=== PATIENT | female | born 1945 | race Caucasian/White ===

== ENCOUNTER → 2024-02-24 10:25 | Outpatient (REF) | payer MEDICARE, BC, SELFPAY ==
[2024-02-24 10:53] LABS: % Basophils 0.9 % (0-2); % Eosinophils 3.2 % (0-6); % Immature Granulocytes 0.2 % (0-0.5); % Lymphocytes 32.9 % (20.5-51.1); % Monocytes 7.6 % (1.7-9.3); % Neutrophils 55.2 % (42.2-75.2); Absolute Basophils 0.1 10^3/uL (0-0.2); Absolute Eosinophils 0.3 10^3/uL (0-0.7); Absolute Lymphocytes 2.6 10^3/uL (1.2-3.4); Absolute Monocytes 0.6 10^3/uL (0.1-0.6); Absolute Neutrophils 4.4 10^3/uL (1.4-6.5); Hematocrit 33.3 % (37.0-47.0); Hemoglobin 11.2 g/dL (12.0-16.0); Mean Corp Hgb Conc. 33.6 g/dL (33.0-37.0); Mean Corpuscular Hgb 30.5 pg (27.0-31.0); Mean Corpuscular Volume 90.7 fL (81.0-99.0); Mean Platelet Volume 11.7 fL (7.4-10.4); Nucleated Red Blood Cells % 0 %; Platelet Count 391 10^3/uL (130-400); Red Blood Cell Count 3.67 10^6/uL (4.20-5.40); Red Cell Dist. Width 12.9 % (11.5-14.5)
[2024-02-24 11:49] LABS: Iron 95 ug/dl (37-170)
== END ==
LOC: OLABN 10:25
PROVIDERS: ATTENDING PHYSICIAN Student in an Organized Health Care Education/Training Program
DX: D50.9 Iron deficiency anemia, unspecified (principal)
CPT/HCPCS: 36415; 83540; 85025

== ENCOUNTER 2024-05-04 16:23 | Inpatient (IN) | payer MEDICARE, BC, SELFPAY ==
[2024-05-04] VITALS (7 sets, daily range): BP systolic 104–146; BP diastolic 64–101; BMI 26.9; BMI 22.0
--- NOTE | 2024-05-04 10:26 | ED.GENMED ---
History of Present Illness
<Ciara Perez PA-C - Last Filed: 05/04/24 16:15>
General
Chief Complaint: Breathing Problem
Source: patient
Exam Limitations: none
Time Seen by Provider: 05/04/24 10:23
Nursing documentation reviewed up to this point in time: agreed with
History of Present Illness
History of Present Illness:
This is a 79-year-old female with a past medical history of end-stage Alzheimer's dementia, hypertension, questionable heart murmur presenting to the emergency department today with concerns of low pulse ox and coughing. Patient is nonverbal at
baseline. present in room who reports that patient started having a lot of coughing and shortness of breath yesterday. Staff at [facility] report that patient has swallowing difficulties at baseline and is on pur�ed foods as her diet
and has been on this diet for many years. They state that she started coughing well yesterday and noticed that her pulse ox was 88% on room air. States she started coughing up a lot of white copious phlegm. They expressed concerns regarding
aspiration pneumonia. denies any history of heart failure, coronary artery disease, asthma, COPD. Patient does not use any oxygen at baseline
Past History
<Ciara Perez PA-C - Last Filed: 05/04/24 16:15>
Past History
ED Past Medical History: GERD and HTN
ED Past Surgical History: Orthopedic
Social History
Tobacco: Non-smoker
Alcohol: None
Drug: None
Personal:
Living: group home
Review of Systems
<Ciara Perez PA-C - Last Filed: 05/04/24 16:15>
Review of Systems
All Other Systems: ROS reviewed and negative except as documented in HPI and ROS
Phy Exam
<Ciara Perez PA-C - Last Filed: 05/04/24 16:15>
Physical Exam
Physical Exam:
General: Patient appears chronically ill, dosing in and out of sleep which reports is baseline
Skin: Warm and dry, no rashes or lesions
Head: Normocephalic, atraumatic
Eyes: Sclera non-icteric. EOMs intact. PERRLA.
Cardiac: Regular rate and rhythm, systolic murmur appreciated
Peripheral Vascular: No lower extremity swelling or edema, 2+ dorsalis pedis pulses bilaterally
Pulm: Increased respiratory effort, scattered wheezes heard in the lung bases bilaterally
Abdomen: Patient groans when pressing on abdomen; no palpable masses
Neuro: Patient moves extremities spontaneously, moves eyes spontaneously, withdrawals to physical touch
Psychiatric: Non-verbal at baseline
Scores
<Ciara Perez PA-C - Last Filed: 05/04/24 16:15>
Heart Failure Risk
Heart Failure Risk Score: Not Applicable
Course
<Ciara Perez PA-C - Last Filed: 05/04/24 16:15>
Orders/Labs/Results
Orders:
Orders
05/04/24 10:09
Electrocardiogram (*1) Urgent
Reason for Study: Shortness of Breath
EKG- Treatment ONCE
05/04/24 10:50
CR Chest Single View Urgent
Reason For Exam: shortness of breath
05/04/24 10:58
Basic Metabolic Panel Urgent
Complete Blood Count/With Diff Urgent
05/04/24 12:59
CT Chest Pe Study Urgent
Comment:
Reason For Exam: hypoxia
05/04/24 Dinner
IDDSI 4 - Pureed
Liquid Modification: Mildly Thick ([place])
05/04/24 15:49
Admit/Transfer Patient As Directed
Co-Sign Provider:
Level of Care: Inpatient admission
Assign to:: Medical/Surgical
Physician / Group: scout lowry
Diagnosis: cough increased secretions concern aspiration pna
Reason for Hospitalization: cough increased secretions concern aspiration pna
Expected length of stay greater than two midnights?: Yes
ELOS- Estimated Length of Stay in days: 3
I certify the patient meets the requirements for IP care: Yes
Code Status As Directed
Resuscitation Status: Do not resuscitate
Reached after discussion with pt or family/Healthcare POA: Yes
Based on pt advanced directive or healthcare POA form: Yes
Decision communicated with: per [facility] record
DNR Bracelet Application ONCE
05/04/24 16:02
Piperacillin/Tazo 3.375 Gram [Zosyn] 3.375 gram in 50 ml IV NOW
05/04/24 16:[address] Non Medication Order As Directed
Physician Order: may have pureed diet nectar thick liquids ,needs to be fed
05/04/24 16:09
HydrALAZINE [Apresoline] 5 mg IV Q6HPRN PRN
05/05/24 08:00
Pantoprazole [Protonix IV] 40 mg IV DAILY
Abnormal Lab Results
05/04/24
10:58
RBC 3.83 L 10^6/uL
(4.20-5.40)
Hgb 11.6 L g/dL
(12.0-16.0)
Hct 36.0 L %
(37.0-47.0)
MCHC 32.2 L g/dL
(33.0-37.0)
Absolute Monos (auto) 0.8 H 10^3/uL
(0.1-0.6)
Lymphocytes % 17.8 L %
(20.5-51.1)
BUN 23 H mg/dl
(7-17)
05/04/24 10:58
05/04/24 10:58
Vital Signs
Initial and Last Documented VS:
Initial Vital Signs
Temp Pulse Resp BP Pulse Ox
98.2 F 95 16 146/88 98
05/04/24 10:16 05/04/24 10:16 05/04/24 10:16 05/04/24 10:16 05/04/24 10:16
Last Documented Vital Signs
Temp Pulse Resp BP Pulse Ox
98.2 F 84 16 104/64 95
05/04/24 10:16 05/04/24 14:19 05/04/24 14:19 05/04/24 14:19 05/04/24 14:19
<Drew Coronado, DO - Last Filed: 05/04/24 14:02>
Orders/Labs/Results
Orders:
Orders
05/04/24 10:09
Electrocardiogram (*1) Urgent
Reason for Study: Shortness of Breath
EKG- Treatment ONCE
05/04/24 10:50
CR Chest Single View Urgent
Reason For Exam: shortness of breath
05/04/24 10:58
Basic Metabolic Panel Urgent
Complete Blood Count/With Diff Urgent
05/04/24 12:59
CT Chest Pe Study Urgent
Comment:
Reason For Exam: hypoxia
05/04/24 Dinner
IDDSI 4 - Pureed
Liquid Modification: Mildly Thick ([place])
05/04/24 15:49
Admit/Transfer Patient As Directed
Co-Sign Provider:
Level of Care: Inpatient admission
Assign to:: Medical/Surgical
Physician / Group: scout lowry
Diagnosis: cough increased secretions concern aspiration pna
Reason for Hospitalization: cough increased secretions concern aspiration pna
Expected length of stay greater than two midnights?: Yes
ELOS- Estimated Length of Stay in days: 3
I certify the patient meets the requirements for IP care: Yes
Code Status As Directed
Resuscitation Status: Do not resuscitate
Reached after discussion with pt or family/Healthcare POA: Yes
Based on pt advanced directive or healthcare POA form: Yes
Decision communicated with: per [facility] record
DNR Bracelet Application ONCE
05/04/24 16:02
Piperacillin/Tazo 3.375 Gram [Zosyn] 3.375 gram in 50 ml IV NOW
05/04/24 16:[address] Non Medication Order As Directed
Physician Order: may have pureed diet nectar thick liquids ,needs to be fed
05/04/24 16:09
HydrALAZINE [Apresoline] 5 mg IV Q6HPRN PRN
05/05/24 08:00
Pantoprazole [Protonix IV] 40 mg IV DAILY
Abnormal Lab Results
05/04/24
10:58
RBC 3.83 L 10^6/uL
(4.20-5.40)
Hgb 11.6 L g/dL
(12.0-16.0)
Hct 36.0 L %
(37.0-47.0)
MCHC 32.2 L g/dL
(33.0-37.0)
Absolute Monos (auto) 0.8 H 10^3/uL
(0.1-0.6)
Lymphocytes % 17.8 L %
(20.5-51.1)
BUN 23 H mg/dl
(7-17)
05/04/24 10:58
05/04/24 10:58
Vital Signs
Initial and Last Documented VS:
Initial Vital Signs
Temp Pulse Resp BP Pulse Ox
98.2 F 95 16 146/88 98
05/04/24 10:16 05/04/24 10:16 05/04/24 10:16 05/04/24 10:16 05/04/24 10:16
Last Documented Vital Signs
Temp Pulse Resp BP Pulse Ox
98.2 F 84 16 104/64 95
05/04/24 10:16 05/04/24 14:19 05/04/24 14:19 05/04/24 14:19 05/04/24 14:19
<Ciara Perez PA-C - Last Filed: 05/04/24 16:15>
MDM/Problems Addressed
Differential Diagnosis Includes:
ddx include aspiration pneumonia, pulmonary embolism, CHF, bronchitis, foreign body
MDM/Problems Addressed:
cough, low pulse ox, purulent sputum:
This is a 79-year-old female with a past medical history of end-stage Alzheimer's dementia, hypertension, questionable heart murmur presenting to the emergency department today with concerns of low pulse ox and coughing. Patient is nonverbal at
baseline. Patient 88% on room air, 95% on 2 L. Has purulent sputum production. On exam, she is scattered wheezes heard throughout with coughing and snoring. CT negative for pulmonary embolism, chest x-ray negative for any active free pulmonary
disease. Considering patient at high risk for aspiration pneumonia, will observe overnight.
<Ciara Perez PA-C - Last Filed: 05/04/24 16:15>
*Pulse Oximetry
Patient hypoxic: yes
*Critical Care Note
Total Time (30-74mins, 75-104mins- exclusive of procedures): Not Applicable
Data Reviewed
Review of Other/Old Records Reveals: Discharge Summary (reviewed most recent discharge summary )
Source: patient and records
<Ciara Perez PA-C - Last Filed: 05/04/24 16:15>
Patient Management
Discussion with other providers: Hospitalist
Escalation/DeEscalation of care consider admission/obs:
admission indicated
ED Attending Note
<Ciara Perez PA-C - Last Filed: 05/04/24 16:15>
-
Portions of this chart may have been created with voice recognition software.� Occasional wrong word or��sound alike� substitutions may have occurred due to the inherent limitations of voice recognition software.
<Drew Coronado, DO - Last Filed: 05/04/24 14:02>
ED Attending Note
Patient seen and examined by attending physician: Yes
I performed a history and physical exam of patient and discussed management with resident, I reviewed resident's note and agree with documented findings and plan of care.: Yes
ED Attending Note:
I have reviewed and agree with history and treatment plan by Ciara Perez. My exam revealed 79-year-old female chronically ill appearance, her baseline. Wheezing, concern for aspiration. CT chest pending. Will treat with zosyn, admit.
Discharge Plan
Departure
Patient Disposition: Admit
Date of Disposition: 05/04/24
Time of Disposition: 15:57
Admit to: Med/Surg
Presentation/result/management discussed w/ accepting MD/DO: Hospitalist
Condition: Fair
Discharge Problem:
Hypoxemia, At high risk for aspiration
Prescriptions:
No Action
rivastigmine tartrate 4.5 MG capsule
4.5 mg PO DAILY
amlodipine [Norvasc] 2.5 mg Tablet
2.5 mg PO DAILY
acetaminophen 325 mg Tablet
650 mg PO Q4HPRN PRN (Reason: mild pain)
aspirin 81 mg Tablet,Delayed Release (Dr/Ec)
81 mg PO DAILY
magnesium hydroxide [Milk of Magnesia] 400 mg/5 mL Suspension
30 ml PO HSPRN PRN (Reason: constipation)
bisacodyl 10 mg Suppository
10 mg [place] [id number] PRN (Reason: day 3 no bm and mom ineffective)
benzocaine 20 % Gel
1 applic MUCOUS MEMBRANE TID
Rx Instructions:
apply to gums
sertraline 50 mg Tablet
50 mg PO DAILY
naloxone 4 mg/actuation [place],Non-Aerosol
4 mg INTRANASAL Q3MPRN PRN (Reason: opiod overdose)
sennosides [senna] 8.6 mg tablet
17.2 mg PO QPM
ferrous sulfate 325 mg (65 mg iron) tablet
325 mg PO Q48H
Referrals:
Oliver Desai DO [Family Provider] -
Interventions
Interventions:
*Risk Screen - Suicide Last Done: 05/04/24 10:29
*General Assessment Last Done: 05/04/24 10:16
*Neglect/Abuse Screening Last Done: 05/04/24 10:16
*ED COVID-19 Vaccine History Last Done: 05/04/24 10:29
ED- Cardiac Assessment Last Done: 05/04/24 10:30
ED- Pulmonary Assessment Last Done: 05/04/24 10:30
Discharge Date and Time
Print Language: OCCITAN
[2024-05-04 11:15] LABS: % Basophils 0.6 % (0-2); % Immature Granulocytes 0.2 % (0-0.5); % Lymphocytes 17.8 % (20.5-51.1); % Monocytes 9.1 % (1.7-9.3); % Neutrophils 71.3 % (42.2-75.2); Absolute Basophils 0.1 10^3/uL (0-0.2); Absolute Eosinophils 0.1 10^3/uL (0-0.7); Absolute Lymphocytes 1.5 10^3/uL (1.2-3.4); Absolute Monocytes 0.8 10^3/uL (0.1-0.6); Absolute Neutrophils 5.8 10^3/uL (1.4-6.5); Hemoglobin 11.6 g/dL (12.0-16.0); Mean Corp Hgb Conc. 32.2 g/dL (33.0-37.0); Mean Corpuscular Hgb 30.3 pg (27.0-31.0); Mean Platelet Volume 9.5 fL (7.4-10.4); Nucleated Red Blood Cells % 0 %; Platelet Count 327 10^3/uL (130-400); Red Blood Cell Count 3.83 10^6/uL (4.20-5.40); Red Cell Dist. Width 12.8 % (11.5-14.5); White Blood Cell Count 8.2 10^3/uL (4.8-10.8)
[2024-05-04 11:32] LABS: Blood Urea Nitrogen 23 mg/dl (7-17); Calcium 9.6 mg/dl (8.4-10.2); Carbon Dioxide 24 mmol/L (22-30); Chloride 105 mmol/L (98-107); Estimated Creatinine Clearance 43 ml/min; Glucose 92 mg/dl (70-99); Sodium 139 mmol/L (135-145); eGFR > 60.00
--- NOTE | 2024-05-04 15:15 | HPS.HSE ---
Addendum entered and electronically signed by Presley Brand MD 05/04/24 16:50:
I saw and examined the patient.
The AGRICULTURE TEACHER or PA's note was reviewed and I agree with the note.
Comment:
79 years old female with advanced dementia and aphasia was brought into the emergency room for concerns regarding coughing after taking clear liquids today. In the emergency room, she had suctioning of oral secretions. Per ER staff, patient had
wheezes on examination. By time I am seeing the patient, she is on room air with no wheezes. She was chewing on her blanket. We gave her applesauce and she tolerated it well without hypoxia or coughing. No fever or leukocytosis.
Physical Exam
General: Other (Awake nonverbal unable to follow commands is chewing on her fingers , able to move arms able to swallow own secretions)
HEENT: NormoCephalic, Anicteric, Moist mucous membranes, PERRLA, [place] Conjunctivae and No Ptosis. Poor dentition
Respiratory: Clear; No Wheezes, Rales or Rhonchi
Cardiac: S1/S2 and positive murmur
GI: Soft, Non Tender, Non Distended and Normal Bowel Sounds
Rectal: No rectal bleed
Genito-urinary: No Hurd
Musculoskeletal: Chronic deformity
Skin: Warm and Dry; No Rash
Neuro: She is awake, disoriented, apparent dementia. Did not follow commands.
Psych: Calm
Assessment and plan
# Report of aspiration. Currently patient has no signs of hypoxia or respiratory distress. Repeat chest x-ray in a.m. as admission chest x-ray did not show acute findings
Can watch the patient overnight and if she maintains good oxygenation with no fever, we can stop antibiotic.
# Advanced Alzheimer dementia, end-stage
Will continue comfort feedings with a pur�ed diet and thickened liquids. Trial of swallowing in the ER did not show signs of distress or coughing
# CODE STATUS, DNR/DNI
Total time spent to see the patient, examine the patient on the floor, review data and lab results, discuss treatment plan with patient, ER doctor, nursing staff around 75 minutes
Original Note:
Family Physician
-
Family Physician: Oliver Desai, DO
Chief Complaint
-
Cough, increased oral secretions, hypoxia
History of Present Illness
79-year-old female from [facility] came to ER this a.m. for reported hypoxia 88%, cough with increased oral secretions. According to ER nurse she was coughing up clear liquid approximately 100 cc she suctioned out of the patient's mouth.
Patient is chronically bedbound, nonverbal due to advanced Alzheimer's. She currently is awake alert chewing on a blanket trying to mumble some words. She is maintaining her oxygen saturation at 95% on room air. She has no audible cough, no rash,
diaphoresis, vomiting, diarrhea.
Past medical history end-stage Alzheimer's with chronic nonverbal state, chronic dysphagia on pur�ed diet, HTN, GERD, UTIs, anxiety, iron deficiency, chronic right leg shortening
Medical History
Past Medical History
Past Medical History: Reports Other
Additional Past Medical History:
End-stage Alzheimer's with chronic nonverbal state
chronic dysphagia on pur�ed diet
HTN
GERD
UTIs
Anxiety
iron deficiency
Past Surgical History: Reports Other
Additional Past Surgical History:
Left hip replacement 1999
EARLINE
Right hip surgery, right knee surgery
Social History
Unable to obtain full social history at this time due to: Patient Non-verbal
Alcohol: None
Drug: None
Personal:
Living: Group Home ([facility])
Employment: Retired
Family History
Family History: Unable to Obtain
Allergies / Home Medications
Allergies reflects when Allergies were last updated in [employer].
Home Medications with original date entered in [employer]
Allergy/Medication List:
Allergies
Allergy/AdvReac Type Severity Reaction Status Date / Time
No Known Allergies Allergy Verified 05/04/24 10:03
Home Medications
rivastigmine tartrate 4.5 mg capsule 4.5 mg PO DAILY DEMENTIA 06/22/20
amlodipine 2.5 mg tablet (Norvasc) 2.5 mg PO DAILY Blood pressure 01/16/23
acetaminophen 325 mg tablet 650 mg PO Q4HPRN PRN mild pain 05/04/24
aspirin 81 mg tablet,delayed release 81 mg PO DAILY 05/04/24
benzocaine 20 % mucosal gel 1 applic mucous membrane TID 05/04/24
bisacodyl 10 mg rectal suppository 10 mg SD [id number] PRN day 3 no bm and mom ineffective 05/04/24
ferrous sulfate 325 mg (65 mg iron) tablet 325 mg PO Q48H 05/04/24
magnesium hydroxide 400 mg/5 mL oral suspension (Milk of Magnesia) 30 ml PO HSPRN PRN constipation 05/04/24
naloxone 4 mg/actuation nasal spray 4 mg intranasal Q3MPRN PRN opiod overdose 05/04/24
sennosides 8.6 mg tablet (senna) 17.2 mg PO QPM 05/04/24
sertraline 50 mg tablet 50 mg PO DAILY 05/04/24
Review of Systems
-
History Source: Group Home and Other (ER nurse)
A 12 point ROS was completed and negative except as noted: Yes
Constitutional: Denies Fever or Fatigue
EENT: Reports Other (Increased oral secretions); Denies Runny Nose
Respiratory: Reports Cough
Cardiac: Denies Diaphoresis or Syncope
Abdomen/GI: Denies Nausea, Vomiting or Diarrhea
Musculoskeletal: Denies Joint Swelling or Edema
Skin: Denies Itching or Rash
Endocrine: Reports No Symptoms
Hematologic/Lymphatic: Reports No Symptoms
Psych: Reports Calm
Physical Exam
Vital Signs
Vital Signs
Temp Pulse Resp BP Pulse Ox
98.2 F 84 16 104/64 95
05/04/24 10:16 05/04/24 14:19 05/04/24 14:19 05/04/24 14:19 05/04/24 14:19
Physical Exam
General: Other (Awake nonverbal unable to follow commands is chewing on blanket able to move arms able to swallow own secretions)
HEENT: NormoCephalic, Anicteric, Moist mucous membranes, PERRLA, [place] Conjunctivae and No Ptosis
Respiratory: Clear; No Wheezes, Rales or Rhonchi
Cardiac: S1/S2 and Regular Rhythm; No Murmur, Rub, Gallop or Peripheral Edema
Breast: Deferred by me
GI: Soft, Non Tender, Non Distended and Normal Bowel Sounds
Rectal: Deferred by Provider
Genito-urinary: Deferred by me
Musculoskeletal: No Clubbing, No Cyanosis, No Edema and Other (Chronic right leg shortening)
Skin: Warm and Dry; No Rash
Neuro: Other (Awake nonverbal unable to follow commands is chewing on blanket able to move arms able to swallow own secretions, chronic contractures bilateral hands, bilateral arms that any cube); No Facial Droop or Tremors
Psych: Calm
Laboratory Results
-
05/04/24 10:58
05/04/24 10:58
Laboratory Results
Total Bilirubin Cancelled 05/04/24 10:58
AST Cancelled 05/04/24 10:58
ALT Cancelled 05/04/24 10:58
Alkaline Phosphatase Cancelled 05/04/24 10:58
Data Reviewed
-
Diagnostic Radiology: Report Reviewed by me
CT Scan: Report Reviewed by me
Lab Data: Labs Reviewed by me
Impression/Plan
-
Impression/plan:
Admit to MedSurg
#Cough, increased oral secretions concern for aspiration PNA
#Hx dysphagia on pur�ed diet
95% RA, 98.2 F, HR 84
-Patient currently without cough is tolerating oral secretions
-Will resume pur�ed diet monitor for fever/coughing
-Meds crushed and mixed with applesauce
-Consult PT/OT/case management
CT chest PE study: No PE
CXR: No active cardiopulmonary disease
#Hx end-stage Alzheimer's chronic Nonverbal, chronic dysphagia/contracture bilateral hands and arms at any cube
#Hx anxiety with delusions
-Rivastigmine 4.5 mg daily crush give with apple sauce
-Zoloft 50 mg daily
#HTN
BP 104/64
-Hold Norvasc 2.5 mg daily
prn hydralzine
#Chronic right leg shortening history of hip fracture repair, right knee surgery
#Chronic bedbound status
#GERD
-IV PPI
#UTIs hx
#Iron deficiency hx
Hgb 11.6, MCV 94
DVT prophylaxis
Subcu Lovenox
DNR per [facility] records
[2024-05-04] MEDS: ZOSYN 50 IV (17:52)
[2024-05-04] MEDS: LOVENOX 40 MG SC (17:53)
[2024-05-05 05:40] LABS: % Basophils 0.4 % (0-2); % Eosinophils 2.3 % (0-6); % Immature Granulocytes 0.2 % (0-0.5); % Lymphocytes 21.1 % (20.5-51.1); % Monocytes 9.6 % (1.7-9.3); % Neutrophils 66.4 % (42.2-75.2); Absolute Eosinophils 0.2 10^3/uL (0-0.7); Absolute Lymphocytes 1.8 10^3/uL (1.2-3.4); Absolute Monocytes 0.8 10^3/uL (0.1-0.6); Absolute Neutrophils 5.5 10^3/uL (1.4-6.5); Hematocrit 33.2 % (37.0-47.0); Hemoglobin 11.1 g/dL (12.0-16.0); Mean Corp Hgb Conc. 33.4 g/dL (33.0-37.0); Mean Corpuscular Hgb 30.1 pg (27.0-31.0); Nucleated Red Blood Cells % 0 %; Platelet Count 340 10^3/uL (130-400); Red Blood Cell Count 3.69 10^6/uL (4.20-5.40); Red Cell Dist. Width 12.8 % (11.5-14.5); White Blood Cell Count 8.3 10^3/uL (4.8-10.8)
[2024-05-05 05:42] VITALS: BMI 21.5
[2024-05-05 06:35] LABS: Blood Urea Nitrogen 21 mg/dl (7-17); Calcium 9.9 mg/dl (8.4-10.2); Carbon Dioxide 25 mmol/L (22-30); Chloride 105 mmol/L (98-107); Estimated Creatinine Clearance 48 ml/min; Glucose 81 mg/dl (70-99); Potassium 4.7 mmol/L (3.5-5.1); Sodium 140 mmol/L (135-145); eGFR > 60.00
[2024-05-05 07:35] VITALS: BP 110/78
[2024-05-05] MEDS: EXELON 4.5 MG PO (08:24)
[2024-05-05] MEDS: ZOLOFT 50 MG PO (08:24)
[2024-05-05] MEDS: NSS (PRESERVATIVE FREE) 10 ML IV (08:24)
[2024-05-05] MEDS: PROTONIX IV 40 MG IV (08:33)
--- NOTE | 2024-05-05 08:43 | PTOTSP ---
Dysphagia Evaluation
Patient with signs of oral/pharyngeal dysphagia due to advanced dementia but without clinical signs concerning for aspiration complications (i.e., chest x-ray without PNA, pt on room air, afebrile, WBC WNL) at this time.
Consider the following pending GOC:
1. If goals of care are for COMFORT feeding understanding aspiration risks, recommend pureed solids and thin liquids.
2. If goals of care are 'safest' diet, consider video swallow study to rule out silent aspiration of thickened liquids as this cannot be done at the bedside and thickened liquids are at a greater risk for pulmonary complications than thin liquids.
Recommend:
1. Diet above pending GOC
2. Oral care 3x daily
3. Strategies: upright to 90 degrees, full feeding assistance, small single sips/bites, slow rate, ensure mouth is clear before next sip/bite, remain upright after meals for 30 minutes as reflux precaution given hx GERD
4. Will f/u for further assessment pending GOC.
--- NOTE | 2024-05-05 09:35 | W.DCSUMMARY ---
Discharge Summary
Discharge Data
Date of Admission: 05/04/24
Date of Discharge: 05/05/24
-
Pending Results: No
Hospital Course
79 years old female was brought into the emergency room after having cough, hypoxia while drinking liquids at the custodial. Upon arrival to the ER, staff suctioned clear liquid out of the patient's mouth. Patient did not have hypoxia in the
hospital. No fever or leukocytosis. Chest radiography did not show infiltration. Patient was given empiric antibiotic in the ER and admitted for observation overnight. Patient did not develop fever or hypoxia overnight. She did not cough. She
tolerated modified diet. She remained hemodynamically stable and was discharged back to custodial in a stable condition. Patient had underlying advanced Alzheimer's dementia/end-stage and chronic nonverbal state.
Physical Exam
General: Not in respiratory distress, awake nonverbal, able to move arms, able to swallow own secretions.
HEENT: Normocephalic, Anicteric, Moist mucous membranes. Poor dentition
Respiratory: Clear; No Wheezes, Rales or Rhonchi
Cardiac: S1/S2 and positive murmur
GI: Soft, Non Tender, Non Distended and Normal Bowel Sounds
Rectal: No rectal bleed
Genito-urinary: No Hurd
Musculoskeletal: Chronic deformity and contractures of extremity mostly lower
Skin: Warm and Dry; No Rash
Neuro: She is awake, disoriented, apparent dementia. Nonverbal. Did not follow commands.
Psych: Calm, apparent dementia. No agitation.
Total discharge time spent to see the patient, examine the patient on the floor, review data and lab results, discuss discharge plan with rehabilitation caseworker, nursing staff around 65 minutes
Discharge Plan
-
Patient Disposition: Longterm/SNF
Discharge Diagnosis/Procedures: Aspiration event
Patient was transferred for an aspiration/choking event. No hypoxia in the hospital. Chest x-ray did not show infiltration. No leukocytosis. No fevers.
Recommend comfort directed care
Diet: As tolerated
Additional Diets: continue modified diet with aspiration precaution
Referrals:
Oliver Desai DO [Family Provider] -
Prescriptions:
Continued
rivastigmine tartrate 4.5 MG capsule
4.5 mg PO DAILY
amlodipine [Norvasc] 2.5 mg Tablet
2.5 mg PO DAILY
acetaminophen 325 mg Tablet
650 mg PO Q4HPRN PRN (Reason: mild pain)
aspirin 81 mg Tablet,Delayed Release (Dr/Ec)
81 mg PO DAILY
magnesium hydroxide [Milk of Magnesia] 400 mg/5 mL Suspension
30 ml PO HSPRN PRN (Reason: constipation)
bisacodyl 10 mg Suppository
10 mg [place] [id number] PRN (Reason: day 3 no bm and mom ineffective)
benzocaine 20 % Gel
1 applic MUCOUS MEMBRANE TID
Rx Instructions:
apply to gums
sertraline 50 mg Tablet
50 mg PO DAILY
naloxone 4 mg/actuation [place],Non-Aerosol
4 mg INTRANASAL Q3MPRN PRN (Reason: opiod overdose)
sennosides [senna] 8.6 mg tablet
17.2 mg PO QPM
ferrous sulfate 325 mg (65 mg iron) tablet
325 mg PO Q48H
Discharge Orders:
Discharge Patient (As Directed); Ordered 05/05/24
Ordered By: Presley Brand
Discharge Date and Time
Discharge Date/Time: 05/05/24 17:51
Print Language: GREENLANDIC
[2024-05-05] MEDS: TYLENOL 500 MG PO (13:23)
--- NOTE | 2024-05-05 15:06 | W.PN.UPDATE ---
Update Note
Progress Note Update
called and updated the about dc planning
[2024-05-05 15:44] VITALS: BP 111/79
--- NOTE | 2024-05-05 16:09 | CM ---
Reviewed chart, placed a call to [facility] Unit [facility] and spoke with Brittany her RN who stated that at baseline patient is fully dependent. She is a aliyah and non ambulatory. She is on a pureed diet. She gets fed and is dependent with all ADLs.
Patient ready for discharge.
Brittany stated that # for report is [phone] and fax# [phone]
Left message for Pardeep in admissions to make aware of patient's return.
Provided unit secy with medical necessity, and transfer sheet.
Plan: Case management will continue to follow and assist with discharge planning. Back to [facility].
[2024-05-05] MEDS: LOVENOX 40 MG SC (17:15)
== END 2024-05-05 17:51 | DRG 206 ==
LOC: 3 WEST ACU 16:23
PROVIDERS: Clinical Nurse Specialist Family Health; Physician Assistant; ADMITTING PHYSICIAN Internal Medicine; EMERGENCY PHYSICIAN Emergency Medicine; FAMILY PHYSICIAN Student in an Organized Health Care Education/Training Program
DX: R09.02 Hypoxemia (principal); F02.84 Dementia in other diseases classified elsewhere, unspecified severity, with anxiety; R47.01 Aphasia; G30.9 Alzheimer's disease, unspecified; I10 Essential (primary) hypertension; E61.1 Iron deficiency; K21.9 Gastro-esophageal reflux disease without esophagitis; R13.10 Dysphagia, unspecified; Z66 Do not resuscitate; Z74.01 Bed confinement status; Z79.82 Long term (current) use of aspirin; Z79.899 Other long term (current) drug therapy; Z91.89 Other specified personal risk factors, not elsewhere classified
CPT/HCPCS: 71045; 71275; 80048; 85025; 87070; 92610; 93005; 96374; 99285; Q9967

== ENCOUNTER → 2024-08-24 09:53 | Outpatient (REF) | payer MEDICARE, BC, SELFPAY ==
[2024-08-24 10:43] LABS: Iron 53 ug/dl (37-170)
== END ==
LOC: OLABN 09:53
PROVIDERS: ATTENDING PHYSICIAN Student in an Organized Health Care Education/Training Program
DX: D50.9 Iron deficiency anemia, unspecified (principal)
CPT/HCPCS: 36415; 83540

== ENCOUNTER → 2024-12-21 08:42 | Outpatient (REF) | payer MEDICARE, SELFPAY | LOC: RAD 08:42 | DX: K02.9 Dental caries, unspecified (principal) | CPT/HCPCS: 70486 ==

== ENCOUNTER → 2025-02-22 11:33 | Outpatient (REF) | payer MEDICARE, BC, SELFPAY ==
[2025-02-22 12:05] LABS: Hematocrit 33.7 % (37.0-47.0); Hemoglobin 10.7 g/dL (12.0-16.0); Mean Corp Hgb Conc. 31.8 g/dL (33.0-37.0); Mean Corpuscular Hgb 30.6 pg (27.0-31.0); Mean Corpuscular Volume 96.3 fL (81.0-99.0); Platelet Count 471 10^3/uL (130-400); Red Cell Dist. Width 12.7 % (11.5-14.5); White Blood Cell Count 8.8 10^3/uL (4.8-10.8)
[2025-02-22 12:39] LABS: Iron 58 ug/dl (37-170)
== END ==
LOC: OLABN 11:33
PROVIDERS: ATTENDING PHYSICIAN Student in an Organized Health Care Education/Training Program
DX: D50.9 Iron deficiency anemia, unspecified (principal)
CPT/HCPCS: 36415; 83540; 85027

== ENCOUNTER → 2025-06-28 11:36 | Outpatient (REF) | payer MEDICARE, BC, SELFPAY ==
[2025-06-28 12:41] LABS: Hematocrit 32.0 % (37.0-47.0); Hemoglobin 10.3 g/dL (12.0-16.0); Mean Corp Hgb Conc. 32.2 g/dL (33.0-37.0); Mean Corpuscular Volume 93.3 fL (81.0-99.0); Nucleated Red Blood Cells % 0 %; Platelet Count 360 10^3/uL (130-400); Red Cell Dist. Width 12.4 % (11.5-14.5)
[2025-06-28 13:24] LABS: ALT (SGPT) 11 U/L (0-35); AST (SGOT) 18 U/L (14-36); Albumin 4.2 g/dl (3.5-5.0); Alkaline Phosphatase 101 U/L (38-126); Blood Urea Nitrogen 25 mg/dl (7-17); Calcium 9.1 mg/dl (8.4-10.2); Carbon Dioxide 22 mmol/L (22-30); Chloride 108 mmol/L (98-107); Glucose 72 mg/dl (70-99); Potassium 4.7 mmol/L (3.5-5.1); Sodium 138 mmol/L (135-145); Total Protein 7.1 g/dl (6.3-8.2); eGFR > 60.00
== END ==
LOC: OLABN 11:36
PROVIDERS: ATTENDING PHYSICIAN Student in an Organized Health Care Education/Training Program
DX: D64.9 Anemia, unspecified (principal)
CPT/HCPCS: 36415; 80053; 85025